=== PATIENT | female | born 1955 | race Asian ===

== ENCOUNTER 2016-10-27 08:14 | Inpatient (IN) | payer OTHER ==
[~2016-10-27] VITALS: Ht 152.4 cm; Wt 51.0 kg
[2016-10-27 09:39] LABS: BASOPHIL % 0.4 % (0-2); PLATELET COUNT 295 x10^3mcL (130-400); RED CELL DISTRIBUTION WIDTH 13.3 % (11.5-14.5)
[2016-10-27 09:40] LABS: UA SPECIFIC GRAVITY 1.025 (1.005-1.035); microscopic required? YES; urine erythrocyte 3+ (NEGATIVE)
[2016-10-27 09:49] LABS: CALCIUM 8.6 mg/dL (8.5-10.1); CARBON DIOXIDE 23.5 mmol/L (21-32); CREATININE SERUM 2.1 mg/dL (0.6-1.0); POTASSIUM SERUM 4.4 mmol/L (3.5-5.1)
[2016-10-27 09:53] LABS: ALBUMIN 3.4 g/dL (3.4-5.0); BILIRUBIN TOTAL 0.21 mg/dL (0.20-1.00); TOTAL PROTEIN, SERUM 7.5 g/dL (6.4-8.2)
[2016-10-27] MEDS ORDERED: LOSARTAN POTASS25 M1 PO (11:58)
[2016-10-27] MEDS ORDERED: FENOFIBRATE160 M1 PO (11:59)
[2016-10-27] MEDS ORDERED: NEXIUM20 MG PO (12:00)
[2016-10-27] MEDS ORDERED: BAYER ASPIRIN R81 MG PO (12:02)
[2016-10-27] MEDS ORDERED: LOMOTIL1 TAB (12:02)
[2016-10-27] MEDS ORDERED: ZOF4 PO (12:03)
[2016-10-27] MEDS ORDERED: PYRIDIUM100 MG PO (12:04)
[2016-10-27] MEDS ORDERED: CIPRO500 MG PO (12:05)
[2016-10-27] MEDS ORDERED: BACTRIM1 TAB (12:07)
[2016-10-27 14:21] VITALS: BP 162/58
[2016-10-27 15:35] LABS: T3 TOTAL 0.77 ng/mL
[2016-10-27 15:58] LABS: MAGNESIUM 2.2 mg/dL (1.8-2.4); PHOSPHOROUS 3.8 mg/dL (2.5-4.9)
[2016-10-27 15:59] LABS: CHOLESTEROL/HDL RATIO 4.2
[2016-10-27 16:19] LABS: FREE T4 1.11 ng/dL (0.76-1.46); FREE THYROXINE INDEX 2.2 ug/dL (1.4-4.5); T4(THYROXINE) 6.2 ug/dL (4.7-13.3)
[2016-10-27 22:14] VITALS: BP 144/80
[2016-10-27 23:14] LABS: AMPHETAMINE QUAL UR NONE DETECTED (NEG <=1000)
[2016-10-28 06:06] VITALS: BP 138/72
[2016-10-28 06:18] LABS: BASOPHIL % 0.3 % (0-2); PLATELET COUNT 234 x10^3mcL (130-400); RED CELL DISTRIBUTION WIDTH 13.5 % (11.5-14.5)
[2016-10-28 06:44] LABS: CALCIUM 7.8 mg/dL (8.5-10.1); CARBON DIOXIDE 20.2 mmol/L (21-32); CREATININE SERUM 1.8 mg/dL (0.6-1.0); MAGNESIUM 2.2 mg/dL (1.8-2.4); PHOSPHOROUS 3.4 mg/dL (2.5-4.9); POTASSIUM SERUM 4.6 mmol/L (3.5-5.1)
[2016-10-28 09:53] VITALS: BP 148/89
[2016-10-28 14:00] VITALS: BP 137/84
[2016-10-28 17:10] VITALS: BP 144/87
[2016-10-28 21:33] VITALS: BP 130/90
[2016-10-29 06:09] VITALS: BP 149/84
[2016-10-29 08:44] VITALS: BP 129/85
[2016-10-29] MEDS ORDERED: CIPRO500 MG PO (11:42)
[2016-10-29] MEDS ORDERED: FLA500 PO (11:44)
[2016-10-29] MEDS ORDERED: LAC PO (11:46)
[2016-10-29] MEDS ORDERED: MP PO (11:47)
[2016-10-29] MEDS ORDERED: LEADER FIBER1 POW (12:07)
[2016-10-29 13:19] VITALS: BP 132/62
== END 2016-10-29 14:17 | disposition home or self-care (01) | DRG 391 ==
LOC: ED 08:14 → DU 11:49
PROVIDERS: Internal Medicine; Specialist; ADMIT Family Medicine
PROC: 0DJD8ZZ Inspection of Lower Intestinal Tract, Via Natural or Artificial Opening Endoscopic (ICD-10-PCS; principal; 2016-10-29 07:30)
DX: K57.32 Diverticulitis of large intestine without perforation or abscess without bleeding (principal); N17.0 Acute kidney failure with tubular necrosis; I10 Essential (primary) hypertension; E11.65 Type 2 diabetes mellitus with hyperglycemia; E78.5 Hyperlipidemia, unspecified; Z88.8 Allergy status to other drugs, medicaments and biological substances
CPT/HCPCS: 45378; 83880; 84439; J1200; J1610; J1885; J1956; J2250; J2310; J3010; J3490; J7030; Q0092

== ENCOUNTER 2019-03-20 11:01 | Inpatient (IN) | payer OTHER, BC ==
[~2019-03-20] VITALS: Ht 152.4 cm; Wt 51.0 kg
[~2019-03-20 11:01] MED LIST: BACTRIM1 TAB; BAYER ASPIRIN R81 MG PO; CIPRO500 MG PO; FENOFIBRATE160 M1 PO; FLA500 PO; LAC PO; LEADER FIBER1 POW; LOMOTIL1 TAB; LOSARTAN POTASS25 M1 PO; MP PO; NEXIUM20 MG PO; PYRIDIUM100 MG PO; ZOF4 PO
[2019-03-20 11:05] VITALS: Ht 152.4 cm; Wt 51.0 kg
--- NOTE | 2019-03-20 11:35 | NUR ---
PT AMBULATORY TO BED 9 FOR EVAL OF LEFT LOWER ABD PAIN; PT HAS BEEN SEEN BY PMD FOR THE PAIN, WAS GIVEN "AN ANTIBIOTIC", BUT NOT 'HELPING'; PT HAS BEEN SEEN BY PROVIDER, CT COMPLETED, NO [id number] AT THIS TIME; PT ALSO STS HAD TRAVELED TO [facility] IN [place] AND WAS TOLD SHE HAD AN INFECTION THERE; WAITING ON FURTHER EXAM/EVAL
[2019-03-20 11:41] LABS: BASOPHIL % 0.7 % (0-2); PLATELET COUNT 291 x10^3mcL (130-400); RED CELL DISTRIBUTION WIDTH 12.7 % (11.5-14.5)
[2019-03-20 11:47] LABS: CALCIUM 9.1 mg/dL (8.5-10.1); CARBON DIOXIDE 27.2 mmol/L (21-32); CREATININE SERUM 2.5 mg/dL (0.6-1.0); POTASSIUM SERUM 3.7 mmol/L (3.5-5.1)
[2019-03-20 11:51] LABS: BILIRUBIN TOTAL 0.3 mg/dL (0.20-1.00)
[2019-03-20 11:52] LABS: ALBUMIN 3.3 g/dL (3.4-5.0); TOTAL PROTEIN, SERUM 8.7 g/dL (6.4-8.2)
--- NOTE | 2019-03-20 12:10 | NUR ---
ADDITIONAL ORDERS REC'D FOR IV FLUIDS; PT RESTING WELL, NO C/O PAIN/N-V/SOB
--- NOTE | 2019-03-20 12:44 | NUR ---
ADDITIONAL ORDERS REC'D FOR IV ABX; PT INITIATED ON FIRST OF TWO; PROVIDER UPDATED FAMILY OF PROBABLE STAY DUE TO DIAGNOSIS OF DIVERTICULITIS AND INCREASED PANCREAS ENZYMES
--- NOTE | 2019-03-20 13:48 | NUR ---
WAITING ON BED ASSIGNMENT; PT RESTING WELL, NO INCREASE IN PAIN, NO DIARRHEA/N-V/FLATULANCE
--- NOTE | 2019-03-20 14:16 | NUR ---
bed assignment rec'd; report given to faina boudreaux; pt prep for transfer
[2019-03-20 14:29] VITALS: BP 141/75
--- NOTE | 2019-03-20 14:30 | NUR ---
RECEIVED PATIENT FROM ER. A/A/OX4; C/O LLQ ABD PAIN X 2 WEEKS. NO N/V. LAST BM THIS AM W/ LOOSE BM X1. NO RESP DISTRESS ON RA. BREATHING SOUND CLEAR FÁTIMA. DENIED CHEST PAIN. ABD FLAT/SOFT. LLQ ABD TENDERNESS (+); BOWEL SOUND ACTIVE. NO EDEMA NOTED. IVF OF NS 50CC/HR TO LAC. IV SITE CLEAN.STATED BAD PAIN ON 05/19; ON AND OFF. REFUSED PAIN MEDS NOW. AT BED SIDE. CALL LIGHT IN REACH.
--- NOTE | 2019-03-20 17:00 | NUR ---
REPORT GIVEN TO JAYDEN MO FOR CONTINUE CARE.
--- NOTE | 2019-03-20 17:10 | NUR ---
RECEIVED REPORT FROM JAYDEN SAINZ. PATIENT IS STABLE. NO ACUTE RESP NOTED. REMAINS ON ROOM AIR. NO C/O PAIN AT THIS TIME. ASSISTED PATIENT WITH AMBULATING TO THE BATHROOM. NO WEAKNESS NOTED, STEADY GAIT OBSERVED. FAMILY AT BEDSIDE. SAFETY PRECAUTION IN PLACE. CALL LIGHT WITHIN REACH. WILL CONTINUE TO MONITOR.
--- NOTE | 2019-03-20 18:15 | NUR ---
DR. MORA SEEN SPEAKING WITH PATIENT AND REGARDING PLAN OF CARE. PER DR. MORA, PATIENT WILL HAVE EGD TOMORROW AND WILL BE NPO FOR BREAKAST. PATIENT CURRENTLY ON CLEAR LIQ DIET. PTIENT VERBALIZED UNDERSTANDING. ALL QUESTIONS AND CONCERNS ADDRESSED. WILL CONTINUE TO MONITOR.
--- NOTE | 2019-03-20 18:30 | NUR ---
PATIENT IN BED, STABLE. NO ACUTE RESPIRATORY DISTRESS NOTED. NO C/O PAIN AT THIS TIME. IV INTACT AND PATENT. NS RUNNING ORDERED. NO INFILTRATION NOTED. FAMILY AT BEDSIDE. SAFETY PRECAUTION IN PLACE. CALL LIGHT WITHIN REACH. WILL CONTINUE TO MONITOR.
--- NOTE | 2019-03-20 20:29 | NUR ---
Awake and verbally responsive. No respiratory distress noted on room air. Denies pain. Denies n/v. Ambulating in the room. Will cont.to monitor. Call light within reach.
[2019-03-20 21:33] VITALS: BP 135/84
--- NOTE | 2019-03-21 04:15 | NUR ---
Afebrile. No significant change in condition noted. Denies pain. Denies n/v. No active bleeding. Cont.on IV flagyl, po levaquin. In no apparent distress. Pending US abdomen.
[2019-03-21 05:12] VITALS: BP 139/81
[2019-03-21 06:19] LABS: BASOPHIL % 0.8 % (0-2); PLATELET COUNT 246 x10^3mcL (130-400); RED CELL DISTRIBUTION WIDTH 12.5 % (11.5-14.5)
[2019-03-21 06:33] LABS: CALCIUM 8.6 mg/dL (8.5-10.1); CARBON DIOXIDE 22.2 mmol/L (21-32); CREATININE SERUM 2.1 mg/dL (0.6-1.0); POTASSIUM SERUM 3.5 mmol/L (3.5-5.1)
[2019-03-21 07:24] VITALS: BP 141/85
--- NOTE | 2019-03-21 07:35 | NUR ---
RECEIVED PT FROM SALES DIRECTOR. PT AWAKE, ALERT. A/OX4. PT ON ROOM AIR WITH NO RESP DISTRESS NOTED. IV ACCESS LAC, CDI INFUSING NS AT 50ML/HR. PERIPHERAL PULSES PALPABLE, NO EDEMA NOTED. ACTIVE BS NOTED. PT REPORTS NO ISSUE WITH VOIDING. PT REPORTS SOME PAIN TO ABDOMEN BUT TOLERABLE AT THIS TIME. PT AMBULATES. SAFETY MEASURES IN PLACE, BED LOW AND LOCKED. CALL LIGHT WITHIN REACH.
--- NOTE | 2019-03-21 08:55 | NUR ---
DUE MEDICATIONS ADMINISTERED, PT TOLERATED WELL. NO ACUTE DISTRESS OR DISCOMFORT NOTED AT THIS TIME. SAFETY MAINTAINED.
--- NOTE | 2019-03-21 09:06 | NUR ---
PT COMPLAINING OF PAIN TO HEAD AND NECK. TYLENOL ADMINISTERED ORDERED PRN (SEE EMAR). WILL MONITOR.
--- NOTE | 2019-03-21 10:00 | NUR ---
PT REPORTS RELIEF FROM HEADACHE AFTER ADMINISTRATION OF TYLENOL. MED EFFECTIVE. SAFETY MAINTAINED.
--- NOTE | 2019-03-21 13:35 | NUR ---
CLEAR LIQUID DIET CLARIFIED WITH JUAQUIN MUTUEL CLERK. PT RECEIVED LUNCH TRAY, FLORANEX ADMINISTERED AT THIS TIME WITH MEALS ORDERED. DUE ABX ADMINISTERED.
--- NOTE | 2019-03-21 14:06 | NUR ---
COLLECTED URINE FOR UA/PROTEIN SENT TO LAB
[2019-03-21 15:16] LABS: UA SPECIFIC GRAVITY 1.015 (1.005-1.035); microscopic required? YES; urine erythrocyte 1+ (NEGATIVE)
[2019-03-21 16:13] VITALS: BP 137/83
--- NOTE | 2019-03-21 17:10 | NUR ---
PT ASLEEP AT THIS TIME WITH NO ACUTE DISTRESS NOTED. FAMILY AT BEDSIDE. SAFETY MAINTAINED.
--- NOTE | 2019-03-21 18:36 | NUR ---
PT STABLE AT THIS TIME. ALL NEEDS TENDED TO THROUGHOUT SHIFT. WILL CONTINUE TO MONITOR AND ENDORSE CARE TO BURN TABLE OPERATOR. PT DENIES PAIN AT THIS TIME.
[2019-03-21 19:35] VITALS: BP 122/72
--- NOTE | 2019-03-21 19:35 | NUR ---
RECEIVED PT AWAKE ALERT AND VERBALLY RESPONSIVE.DENIES ABDOMINAL PAIN.NO N/V NOTED.BP 122/72 MMHG,HR 83.REPORTS OF WATERY STOOL TODAY.TOLERATING CLEAR LIQUID DIET.WILL CONTINUE TO MONITOR.
--- NOTE | 2019-03-22 04:57 | NUR ---
PT SLEPT WELL ALL NIGHT.MEDICATED WITH TYLENOL 650 MG PO X1 FOR HEADACHE WITH GOOD RELIEF.NO ASE NOTED FROM FLAGYL IV ATB.ALL NEEDS MET.WILL CONTINUE TO MONITOR.
[2019-03-22 06:01] VITALS: BP 129/78
--- NOTE | 2019-03-22 07:48 | NUR ---
RECEIVED PATIENT FROM JAYDEN VEGA. PATIENT OBSERVED SEATED AT BEDSIDE. NO COMPLAINTS OF PAIN AT THIS TIME. WILL WAIT FOR ANDROID IOS DEVELOPER JUAQUIN TO ARRIVE TO SPEAK WITH PATIENT. CALL LIGHT IN REACH.
[2019-03-22] MEDS ORDERED: BACDS PO ×2 (08:28→14:31)
[2019-03-22 08:42] VITALS: BP 143/88
--- NOTE | 2019-03-22 09:42 | NUR ---
KNIT GOODS PRESS HAND JUAQUIN IN TO SPEAK WITH PATIENT, STATES PATIENT IS ABLE TO BE DISCHARGED TODAY. PATIENT STATES SHE WOULD LIKE TO WAIT TO SPEAK WITH DR MORA FIRST. WILL WAIT FOR DR MORA TO COME SPEAK WITH PATIENT AND THEN DISCHARGE TODAY. CALL LIGHT IN REACH.
[2019-03-22 09:52] VITALS: BP 143/88
--- NOTE | 2019-03-22 10:42 | NUR ---
DR MORA IN TO SPEAK WITH PATIENT AND . STATES PATIENT WILL BE OK TO GO HOME TODAY, AND NEEDS TO FU WITH HIM FOR GI NEEDS AND TO FU WITH PCP AND CERTIFIED PROFESSIONAL CODER. ALSO RECOMMENDED FIBER REGIMENT AND FLUIDS. WILL COMPILE DISCHARGE PACKET AND DISCHARGE TODAY.
--- NOTE | 2019-03-22 12:21 | NUR ---
DISCHARGE INSTRUCTIONS GIVEN AND EXPLAINED TO PATIENT AND . PACKET, PRESCRIPTIONS, AND DR MORA CLINIC INFO GIVEN TO PATIENT PER DR MORA. ALL QUESTIONS ADDRESSED AT THIS TIME AND PATIENT AWARE TO FU WITH PCP WITHIN 2-3 DAYS. SIGNATURES OBTAINED, IV CATHETER REMOVED AND INTACT. PATIENT AND WITH BELONGINGS AND DISCHARGE PACKET ESCORTED DOWNSTAIRS VIA WHEELCHAIR WITH THIS NURSE.
== END 2019-03-22 12:10 | disposition home or self-care (01) | DRG 438 ==
LOC: ED 11:01 → MU 12:40
PROVIDERS: Emergency Medicine; Internal Medicine Nephrology; ADMIT Internal Medicine
DX: K85.90 Acute pancreatitis without necrosis or infection, unspecified (principal); N17.0 Acute kidney failure with tubular necrosis; N39.0 Urinary tract infection, site not specified; K57.32 Diverticulitis of large intestine without perforation or abscess without bleeding; N18.3 Chronic kidney disease, stage 3 (moderate); I12.9 Hypertensive chronic kidney disease with stage 1 through stage 4 chronic kidney disease, or unspecified chronic kidney disease; D63.1 Anemia in chronic kidney disease; E86.0 Dehydration; E78.5 Hyperlipidemia, unspecified; Z79.82 Long term (current) use of aspirin
CPT/HCPCS: 90658; 90732; C9113; G0378; J2543; J3490; J7030; Q0092